=== PATIENT | female | born 1990 | race Caucasian/White ===

== ENCOUNTER 2019-10-10 23:03 | Emergency (ER) | payer SELFPAY ==
[~2019-10-10] VITALS: Ht 162.6 cm; Wt 86.2 kg
[2019-10-10 23:10] VITALS: BP 99/67; Ht 162.6 cm; Wt 86.2 kg
[2019-10-11 00:43] LABS: BASOPHIL % 0.4 % (0-2); PLATELET COUNT 323 x10^3mcL (130-400)
[2019-10-11 00:46] LABS: RED CELL DISTRIBUTION WIDTH 15.6 % (11.5-14.5)
[2019-10-11 01:00] LABS: T4(THYROXINE) 7.9 ug/dL (4.7-13.3)
== END 2019-10-11 01:34 | disposition home or self-care (01) ==
LOC: ED 23:03
PROVIDERS: Emergency Medicine
DX: N93.9 Abnormal uterine and vaginal bleeding, unspecified (principal); F17.210 Nicotine dependence, cigarettes, uncomplicated; D25.9 Leiomyoma of uterus, unspecified; D64.9 Anemia, unspecified; Z98.890 Other specified postprocedural states
CPT/HCPCS: 36415